=== PATIENT | female | born 1975 | race Caucasian/White ===

== ENCOUNTER 2022-01-15 01:51 | Emergency (ER) | payer OTHER, SELFPAY ==
[2022-01-15 01:55] VITALS: BP 106/70; PULSE 81; RESP 16; TEMP 35.9; O2SAT 98
--- NOTE | 2022-01-15 02:02 | ECG_ITS ---
[facility] Test Date: 2022-01-15 Pat Name: Margaret Murray Department: Room: Gender: Female [employer] Developer: : 1975 Requested By: Wade Ardon Order Number: [id number] Julieta MD: Kwabena Bueno M.D. Measurements Intervals [place] Rate: 71 P: 37 AR: 164 QRS: -24 QRSD: 84 T: 46 QT: 388 QTc: 422 Interpretive Statements SINUS RHYTHM BORDERLINE LEFT AXIS DEVIATION [QRS AXIS < -20] No previous ECG available for comparison Electronically Signed On 01-15-2022 22:01:05 CDT by Kwabena Bueno M.D. [id number]
[2022-01-15] MEDS: famotidine 20 mg/2 mL INJ IVP (02:28)
[2022-01-15] MEDS: ondansetron 2 mg/ML SDV 2 mL 8 MG IVP (02:31)
[2022-01-15 02:45] VITALS: BP 122/75; PULSE 75; RESP 17; O2SAT 97
--- NOTE | 2022-01-15 03:13 | W.ED.ALLEREA ---
HPI - Allergic Reaction General: Chief complaint: Allergic Reaction Stated complaint: Allergic Reaction Time Seen by Provider: 01/15/22 01:54 Source: patient, family and EMS History of Present Illness: HPI narrative: 47-year-old female whom 2 hours prior to arrival was sitting at home watching TV. She began to break out into hives, itch, get short of breath and nauseated. She felt like her tongue was swelling a bit and her throat hurt. She gave her self an injection of an EpiPen, that was likely , and took Benadryl. When she did not improve significantly, she called EMS. In route, she was given another 50 mg of IM Benadryl as well as 0.3 of IM epinephrine. She is still nauseated. She is somewhat improved on arrival. MD complaint: allergic reaction Onset (ago): hour(s) Exposure: unknown Associated symptoms: Reports abdominal pain, difficulty breathing, itching, nausea, rash and vomiting; Deny dysphagia, dizziness, hoarseness or tongue swelling Severity: moderate Treatment prior to arrival: benadryl and epinephrine Previous Allergic Reaction History: prior ED visit(s) and anaphylaxis Review of Systems Const: Denies: fever(s), chills or body aches Eyes: Denies: change in vision ENMT: Reports: throat pain and odynophagia; Denies: hoarseness Card: Denies: chest pain or palpitations Resp: Reports: dyspnea; Denies: productive cough, non-productive cough or wheezing GI: Reports: abdominal pain, nausea and vomiting; Denies: dysphagia : Denies: difficulty voiding Skin/Breast: Denies: rash Neuro: Denies: headache(s), weakness in extremities, dizziness or confusion All/Imm: Denies: tongue swelling Physical Exam Const: GENERAL APPEARANCE: cooperative and ill appearing (Mildly); not frail appearing HENMT: COMMON NORMALS: normocephalic and atraumatic HEAD & SCALP: normocephalic and atraumatic FACE & SINUS: normal facial exam, face symmetric and erythema; no edema MOUTH: Normal oral and palatal mucosa present, lip normal and tongue normal Eye: COMMON NORMALS: Equal, round and reactive pupils present and EOMs intact bilaterally PUPIL: Yes Equal, round and reactive pupils present Neck/C-Spine: GENERAL: Yes trachea midline Chest: CHEST: Yes Symmetrical chest wall rise Resp: COMMON NORMALS: normal respiratory effort, No use of accessory muscles and clear to auscultation bilaterally AUSCULTATION: clear to auscultation bilaterally Cardio: COMMON NORMALS: regular rate and regular rhythm RATE: regular rate RHYTHM: regular rhythm GI: COMMON NORMALS: Normal to inspection, nondistended, normoactive bowel sounds present and Soft to palpation PALPATION: Yes Soft to palpation Extremity: COMMON NORMALS: no pedal edema Neuro: ALINA COMA SCALE: document GCS findings Alina coma scale eye opening: Spontaneous Power coma scale verbal response: Orientated Alina coma scale motor response: Obey commands Power coma scale total score: 15 Psych: COMMON NORMALS: cooperative Skin: NARRATIVE SKIN EXAM: Widespread urticaria with convalescence. Course Vital Signs: Vital signs: Vital Signs Temperature 96.6 F L 01/15/22 01:55 Pulse Rate 75 01/15/22 02:45 Respiratory Rate 17 01/15/22 02:45 Blood Pressure 122/75 01/15/22 02:45 Pulse Oximetry 97 01/15/22 02:45 Oxygen Delivery Me thod 01/15/22 02:45 MDM - Allergic Reaction Medical Decision Making Patient with significant urticaria, nausea, vomiting. Oxygen saturations have been normal on room air. Her tongue is not overly swollen. There is no evidence of airway compromise. She was given Solu-Medrol and Pepcid in addition to the Benadryl and epinephrine she got in route. She has been observed for 1.5 hours now with no signs of rebound. She is continuing to improve. She feels much better and would like to go home. She will be represcribed an epinephrine injector, as well as steroids and antihistamines for the next few days to prevent rebound. Discharge Plan Discharge Patient Disposition: Home Clinical Impression: Anaphylaxis Condition: Stable Prescriptions: New Medrol (Saw) 4 mg tablets,dose pack See Rx Instructions .ROUTE .COMPLEX Qty: 21 0RF Rx Instructions: orally per package directions Zyrtec 10 mg capsule 10 mg PO DAILY Qty: 30 0RF EpiPen 2-Saw 0.3 mg/0.3 mL auto-injector 0.3 mg IM Q10M PRN (Reason: anaphylaxis) Qty: 2 0RF Rx Instructions: for 2 doses Discharge Orders: Discharge ED (Routine); Ordered 01/15/22 Ordered By: Wade Pierson Discharge Diet: Advance as tolerated Discharge Activity: Increase activity as tolerated Patient Instructions: Anaphylaxis (ED) Coding Level of Care Code ED Medical Coding Specialist for [place]
[2022-01-15 03:36] VITALS: BP 122/75; PULSE 75; RESP 17; O2SAT 97
== END 2022-01-15 03:40 | disposition home or self-care (01) ==
PROVIDERS: Emergency Provider Emergency Medicine
DX: T78.2XXA Anaphylactic shock, unspecified, initial encounter (principal)
CPT/HCPCS: 93005; 96374; 96375; 99284; J2405; J2930; J3490

== ENCOUNTER → 2022-04-05 12:29 | Outpatient (BNVA) | payer OTHER, SELFPAY | PROVIDERS: Visit Provider Family Medicine | DX: T78.2XXA Anaphylactic shock, unspecified, initial encounter (principal); Z98.84 Bariatric surgery status; N95.1 Menopausal and female climacteric states | CPT/HCPCS: 80053; 80061; 82306; 82607; 82670; 83001; 84443; 84630; 85025; 86003; 86008 ==

== ENCOUNTER 2024-06-06 08:01 | Outpatient (CLI) | payer OTHER, SELFPAY ==
--- NOTE | 2024-06-06 08:40 | MM_ITS ---
WS: [id number] BILATERAL SCREENING DIGITAL TOMOSYNTHESIS MAMMOGRAM WITH CAD HISTORY: breast cancer screen COMPARISON: 02/28/2021 Bilateral CC and MLO views with tomosynthesis and synthetic mammography submitted. Computer aided detection analyzed. Breast composition: The breasts are almost entirely fatty. No suspicious masses, microcalcifications or architectural distortion. MM/MM scr BI tomosynthesis [id number] IMPRESSION: BI-RADS: 1 - Negative. FOLLOW UP: 1 Year Follow-up
== END 2024-06-06 08:02 | disposition home or self-care (01) ==
PROVIDERS: PCP Family Medicine; Visit Provider Family Medicine
DX: Z12.39 Encounter for other screening for malignant neoplasm of breast (principal); Z12.31 Encounter for screening mammogram for malignant neoplasm of breast; R92.313 Mammographic fatty tissue density, bilateral breasts
CPT/HCPCS: 77063; 77067